=== PATIENT | female | born 1965 | race Caucasian/White ===

== ENCOUNTER 2022-06-08 04:36 | Outpatient (CLI) | payer OTHER, SELFPAY | END 2022-06-08 04:37 | disposition home or self-care (01) | LOC: AMB 06-16 16:59 | PROVIDERS: Visit Provider Family Medicine | DX: R51.9 Headache, unspecified (principal); R20.0 Anesthesia of skin; R20.2 Paresthesia of skin | CPT/HCPCS: A0425; A0427 ==

== ENCOUNTER 2022-06-08 05:07 | Emergency (ER) | payer OTHER, SELFPAY ==
[2022-06-08 05:11] VITALS: BP 123/72; PULSE 103; RESP 18; TEMP 36.5; O2SAT 100; BMI 21.3
--- NOTE | 2022-06-08 05:21 | ED_ITS ---
HPI - General Adult General Time Seen by Provider: 05:26 Date Seen: 06/08/22 Chief complaint: Headache/Migraine Stated complaint: Migraine Time Seen by Provider: 06/08/22 05:10 Source: patient Mode of arrival: EMS Limitations: no limitations History of Present Illness HPI narrative: 56-year-old female who comes in with headache and tingling in her hands and feet. She says she woke up from sleep with a posterior headache and then had numbness and tingling that went all through her body. Headache is now moved to the front of her head is more typical of her migraines, still having some tingling in hands and feet. Has not taken any medication for this today, has had a ?chronic migraine? for 2 years. No fall or head injury. No chest pain or shortness of breath, no vomiting but did have some nausea. No weakness. Related Data Home Medications Medication Instructions Recorded Confirmed amitriptyline 06/08/22 duloxetine 06/08/22 gabapentin 06/08/22 magnesium 06/08/22 risperidone 06/08/22 Allergies Allergy/AdvReac Type Severity Reaction Status Date / Time ampicillin Allergy swelling/hi Verified 06/08/22 05:33 ves erythromycin base Allergy Verified 06/08/22 05:33 Penicillins Allergy swelling/hi Verified 06/08/22 05:33 ves meperidine [From Demerol] AdvReac another Verified 06/08/22 05:33 family member is allergic sulfas Allergy Uncoded 06/08/22 05:33 Review of Systems Status of ROS: Reports: 10 or more systems reviewed and unremarkable except as noted in History and below PFSH PFSH Social History Smoking Status: Former smoker How often do you have a drink containing alcohol: never AUDIT-C Alcohol total score: 0 Non-prescribed substance use: denies use Exam Const: Vital Signs, click to edit/add: Vital Signs - 24 hr 06/08/22 05:11 Temperature 97.7 F Pulse Rate [Right Pulse Oximeter] 103 H Respiratory Rate 18 Blood Pressure [Le ft Upper Arm] 123/72 Pulse Oximetry 100 Oxygen Delivery Me thod Room Air Documenting provider has reviewed patient's vital signs: yes Common normals: no apparent distress, oriented x3, alert and well nourished HENMT: Common normals: normocephalic, head/scalp atraumatic, external ears normal and external nose normal Head and scalp: normocephalic and atraumatic Nose: external nose normal External ear: external ears normal Eye: Common normals: PERRL and conjunctivae normal Conjunctiva: conjunctiva(e) normal Pupil: PERRL Neck & C-Spine: Common normals: full ROM, no lymphadenopathy and supple Chest: Common normals: palpation of chest normal Resp: Common normals: normal respiratory effort and clear to auscultation bilaterally Auscultation: clear to auscultation bilaterally Cardio: Common normals: regular rate, regular rhythm and no murmurs Rate: regular rate Rhythm: regular rhythm GI: Common normals: Normal to inspection, nondistended, normoactive bowel sounds present, soft to palpation and non-tender Palpation: soft : Common normals: no CVA tenderness Bladder/kidney exam: no CVA tenderness Back & Pelvis: Common normals: no CVA tenderness and thoracic and lumbar spine normal to inspection Extremity: Common normals: normal to inspection, full ROM and no pedal edema Neuro: Common normals: oriented x3, CN's II-XII intact bilaterally and no focal motor deficits Sensorium/orientation: alert Other: Voice tremulous Psych: Common normals: mental status grossly normal Skin: Common normals: no rashes or lesions noted General skin exam: no rashes or lesions noted Course Course Hospital Course: Patient seen examined, prior records are reviewed. Differential diagnosis includes but not limited to intracranial hemorrhage, anxiety, recurrent headache, electrolyte disturbance. Patient presents with headache and now numbness and tingling in the hands and feet. Patient exhibits short shallow respirations and tremulous voice. Symptoms are consistent with acute headache and possibly concomitant acute anxiety. Labs and head CT are ordered as headache is different from her usual. IV fluids and Ativan are ordered. Reevaluation(s) Reevaluation #1: CT scan of the head is negative. Patient is rechecked, says she still feels ?weird? but is unable to really further describe her symptoms. She does have a little bit of a headache, she denies chest pain, shortness of breath, vision changes, vertigo, numbness or tingling in the arms or legs, weakness in the arms or legs. She will be given Toradol and promethazine which are her usual migraine medications, labs are still pending. Time: 06:33 Reevaluation #2: Patient feels better, is not yet received her promethazine. Reviewed labs in stable for discharge. Time: 06:59 Vital Signs Vital signs: Initial Vital Signs Temperature 97.7 F 06/08/22 05:11 Temperature Source Temporal Artery Scan 06/08/22 05:11 Pulse Rate 103 H 06/08/22 05:11 Respiratory Rate 18 06/08/22 05:11 Blood Pressure 123/72 06/08/22 05:11 Blood Pressure Mean 89 06/08/22 05:11 Blood Pressure Position Supine 06/08/22 05:11 Pulse Oximetry 100 06/08/22 05:11 Oxygen Delivery Method 06/08/22 05:11 Vital Signs Temperature 97.7 F 06/08/22 05:11 Pulse Rate 103 H 06/08/22 05:11 Respiratory Rate 18 06/08/22 05:11 Blood Pressure 123/72 06/08/22 05:11 Pulse Oximetry 100 06/08/22 05:11 Oxygen Delivery Method 06/08/22 05:11 Temperature 97.7 F 06/08/22 05:11 Pulse Rate 103 H 06/08/22 05:11 Respiratory Rate 18 06/08/22 05:11 Blood Pressure 123/72 06/08/22 05:11 Pulse Oximetry 100 06/08/22 05:11 Oxygen Delivery Method 06/08/22 05:11 Medical Decision Making Medical Records Medical records reviewed: Yes I reviewed the patient's medical records Lab Data Lab results reviewed: Yes I reviewed the patient's lab results Labs: Lab Results 06/08/22 Range/Units 05:38 Sodium 136 (135-149) mmol/L Potassium 3.8 (3.6-5.1) mmol/L Chloride 105 (96-114) mmol/L Carbon Dioxide 23 (20-32) mmol/L BUN 14 (7-30) mg/dL Creatinine 0.9 (0.5-1.5) mg/dL Estimated Creat Clear 69.14 Estimated GFR 75 ml/min Glucose 120 H (60-115) mg/dL Calcium 8.8 (8.4-10.6) mg/dL Magnesium 1.9 (1.5-2.6) mg/dL Imaging Data CT scan - head: Attestation: I have reviewed the pertinent imaging results. My impression: negative Radiologist's impression: negative Discharge Plan Discharge Clinical Impression: Paresthesia, Headache Patient Disposition: Home w/ Parent or Adult Condition: Improved Instructions: Acute Headache (DC), Paresthesia (ED) Activity Level: No Restrictions Discharge Diet: Regular Prescriptions: No Action gabapentin duloxetine amitriptyline risperidone magnesium Stand Alone Forms: [employer] Info Instructions
--- NOTE | 2022-06-08 05:30 | CRLHL7_ITS ---
For Patients: As a result of the Century Cures Act, medical imaging exams and procedure reports are released immediately into your electronic medical record. You may view this report before your referring provider. If you have questions, please contact your health care provider. INDICATION: Headache and paresthesias COMPARISON: None TECHNIQUE: CT examination of the head was performed as axial sections without intravenous contrast. Images were obtained from the vertex of the skull through the skull base. Please note that all CT scans at this facility use dose modulation, iterative reconstruction, and/or weight-based dosing when appropriate to reduce radiation dose to as low as reasonably achievable. FINDINGS: The brain shows no sign of mass lesion, mass effect, hemorrhage, or edema. The ventricles and sulci are normal in appearance for the patient`s age. The visualized portions of the orbits are normal in appearance. The osseous structures are normal in their appearance with no sign of abnormality in the skull base or calvarium. IMPRESSION: Normal unenhanced head CT. Please note that all CT scans at this facility use dose modulation, iterative reconstruction, and/or weight-based dosing when appropriate to reduce radiation dose to as low as reasonably achievable. Dictated by Aakash Benedict MD @ 06/08/2022 6:17:04 AM (Electronically Signed)
[2022-06-08] MEDS: 0.9 % SODIUM CHLORIDE 1000 ml 1,000 ML IV (05:46)
--- NOTE | 2022-06-08 05:49 | ED.NURSE ---
pt did not want to take the prescribed Ativan. Pt did want to take her morning medications. MD informed and OK'd personal meds to be taken.
[2022-06-08 06:35] LABS: Chloride* 105 mmol/L (96-114); Potassium* 3.8 mmol/L (3.6-5.1); Sodium* 136 mmol/L (135-149)
[2022-06-08 06:37] LABS: Creatinine* 0.9 mg/dL (0.5-1.5); Est. Creatinine Clearance* 69.14; Estimated Glomerular Filt Rate 75 ml/min
[2022-06-08 06:38] LABS: Blood Urea Nitrogen* 14 mg/dL (7-30); Calcium* 8.8 mg/dL (8.4-10.6); Carbon Dioxide* 23 mmol/L (20-32); Glucose* 120 mg/dL (60-115)
[2022-06-08 06:39] LABS: Magnesium* 1.9 mg/dL (1.5-2.6)
[2022-06-08 07:00] VITALS: BP 132/82; PULSE 81; RESP 16; O2SAT 99
[2022-06-08] MEDS: KETOROLAC 15 MG/ML inj IVP (07:00)
== END 2022-06-08 07:11 | disposition home or self-care (01) ==
PROVIDERS: Emergency Provider Family Medicine
DX: R51.9 Headache, unspecified (principal); R20.2 Paresthesia of skin
CPT/HCPCS: 36415; 70450; 80048; 83735; 96374; 96375; 99283; 99284; J1885; J7030